=== PATIENT | female | born 1970 | race Caucasian/White ===

== ENCOUNTER 2018-10-08 06:14 | Day surgery (SDC) | payer OTHER ==
[2018-10-08] MEDS ORDERED: MIDAZOLAM 1 MG/ML 2 ML INJ ×2 (08:28→08:29)
[2018-10-08] MEDS ORDERED: FENTAnyl 50 MCG/ML VIAL (08:29)
== END 2018-10-08 12:13 | disposition home or self-care (01) ==
LOC: GIL 06:14
DX: Z12.11 Encounter for screening for malignant neoplasm of colon (principal); K64.8 Other hemorrhoids; D12.2 Benign neoplasm of ascending colon
CPT/HCPCS: 45380; 84703; 88305